=== PATIENT | female | born 1955 | race Caucasian/White ===

== ENCOUNTER 2019-06-22 14:17 | Emergency (ER) | payer BC, OTHER ==
[2019-06-22 15:21] LABS: Absolute Lymphocytes (CBC) 1.6 K/uL (0.7-4.9); Basophils % 0.3 % (0-1.3); Hematocrit 34.2 % (36.0-45.0); Lymphocytes % 24.9 % (15.3-44.8); MPV 8.8 fL (7.6-11.3); RBC Red Blood Cell Count 3.66 M/uL (3.86-4.86)
[2019-06-22 15:22] LABS: Protime INR 1.05
[2019-06-22 15:40] LABS: ALT/SGPT 25 U/L (12-78); AST/SGOT 22 U/L (15-37); Albumin 3.6 g/dL (3.4-5.0); Alkaline Phosphatase 102 U/L (45-117); BUN Blood Urea Nitrogen 23 mg/dL (7-18); Bicarbonate 28 mmol/L (21-32); Bilirubin Direct < 0.1 mg/dL (0-0.2); Bilirubin Total 0.2 mg/dL (0.2-1.0); Glucose Level 83 mg/dL (74-106); Magnesium 2.2 mg/dL (1.8-2.4); NT PRO-BNP 87 pg/mL (<125); Potassium 4.2 mmol/L (3.5-5.1); Protein, Total 6.6 g/dL (6.4-8.2); Sodium Level 142 mmol/L (136-145); Troponin (Emerg Dept Use Only) < 0.02 ng/mL (0.0-0.045)
--- NOTE | 2019-06-22 16:47 | RAD REPORT ---
EXAM DESCRIPTION: Oleg Single View06/22/2019 3:10 pm CLINICAL HISTORY: Chest pain COMPARISON: none FINDINGS: The lungs are hyperaerated The lungs appear clear of acute infiltrate. The heart is normal size IMPRESSION: No acute abnormalities displayed
--- NOTE | 2019-06-22 17:02 | RAD REPORT ---
EXAM DESCRIPTION: CT - Chest Abdomen W Con - 06/22/2019 4:22 pm CLINICAL HISTORY: Chest and abdominal pain COMPARISON: None. TECHNIQUE: Computed axial tomography the chest and abdomen obtained. 100 cc Isovue-300 administered intravenously. Oral contrast not given which limits evaluation bowel. All CT scans are performed using dose optimization technique as appropriate and may include automated exposure control or mA/KV adjustment according to patient size. FINDINGS: Lungs are clear No mediastinal or hilar lymphadenopathy is seen A pleural effusion is not seen. A pericardial effusion is not present. Cholecystectomy. The liver, spleen, pancreas, adrenals and kidneys appear unremarkable Visualized large and small bowel normal caliber. Large amount of stool is visualized within: Postsurg ical changes involve the bowel IMPRESSION: Large amount stool visualized within the colon Otherwise, no acute abnormality displayed
--- NOTE | 2019-06-22 17:32 | ER ---
Nurse's Notes [facility] Name: Nelly Davila Age: 63 yrs Sex: Female : 1955 Arrival Date: 06/22/2019 Time: 14:20 Bed 27 Private MD: Diagnosis: Other chest pain-right lower chest wall Presentation: 06/22 14:24 Presenting complaint: Presenting complaint: Patient states: RUQ pain radiating to right aa5 side of back that began 3 weeks ago. Pt denies N/V. 14:25 Transition of care: patient was not received from another setting of care. Onset of aa5 symptoms was June 2019. Risk Assessment: Do you want to hurt yourself or someone else? Patient reports no desire to harm self or others. Initial Sepsis Screen: Does the patient meet any 2 criteria? No. Patient's initial sepsis screen is negative. Does the patient have a suspected source of infection? No. Patient's initial sepsis screen is negative. Care prior to arrival: None. 14:25 Method Of Arrival: Ambulatory aa5 14:25 Acuity: RAMON 3 aa5 Historical: - Allergies: 14:28 Codeine; aa5 14:28 tramadol (Upset stomach); aa5 - Home Meds: 14:28 None [Active]; aa5 - PMHx: 14:28 Colon cancer; aa5 - PSHx: 14:28 Tonsillectomy; Tumor removed from breast; Colon resection; Cholecystectomy; aa5 14:28 Hysterectomy; aa5 14:28 Bladder repair; aa5 - Immunization history:: Flu vaccine is not up to date. - Social history:: Smoking status: Patient/guardian denies using tobacco. - Ebola Screening: : No symptoms or risks identified at this time. Screenin:43 Abuse screen: Denies threats or abuse. Denies injuries from another. Nutritional rv screening: No deficits noted. Tuberculosis screening: No symptoms or risk factors identified. Fall Risk None identified. Assessment: 14:41 General: Appears in no apparent distress. Behavior is calm, cooperative. Pain: rv Complains of pain in right lower rib cage Pain radiates to back Pain began three weeks ago. Neuro: Level of Consciousness is awake, alert, obeys commands, Oriented to person, place, time, situation. Cardiovascular: Patient's skin is warm and dry. Respiratory: Airway is patent. GI: Patient currently denies abdominal pain, constipation, diarrhea. Vital Signs: 14:28 BP 133 / 95; Pulse 72; Resp 16 S; Temp 98.0(TE); Pulse Ox 100% on R/A; Weight 41.73 kg aa5 (R); Height 5 ft. 0 in. (152.40 cm) (R); Pain 6/10; 17:52 BP 123 / 99; Pulse 76; Resp 15; Pulse Ox 100% ; rv 14:28 Body Mass Index 17.97 (41.73 kg, 152.40 cm) aa5 ED Course: 14:20 Patient arrived in ED. as 14:24 Arm band placed on. aa5 14:26 Triage completed. aa5 14:30 Waqar Richards, DAVIDE is Primary Nurse. rv 14:31 Jared Strange PA is PHCP. cp 14:31 Jared Mane MD is Attending Physician. cp 14:43 Patient has correct armband on for positive identification. Pulse ox on. NIBP on. rv 14:43 Patient maintains SpO2 saturation greater than 95% on room air. rv 15:07 XRAY Chest (1 view) In Process Unspecified. EDMS 15:41 Inserted saline lock: 22 gauge in left antecubital area, using aseptic technique. Blood rv collected. 16:22 CT Chest Abdomen W/ Contrast In Process Unspecified. EDMS 17:52 No provider procedures requiring assistance completed. IV discontinued, intact, rv bleeding controlled, No redness/swelling at site. Pressure dressing applied. Administered Medications: 17:37 Drug: TORadol 30 mg Route: IVP; Site: left antecubital; rv 17:51 Follow up: Response: Medication administered at discharge. rv Outcome: 17:31 Discharge ordered by MD. cp 17:52 Discharged to home ambulatory, with family. rv 17:52 Condition: good 17:52 Discharge instructions given to patient, Instructed on discharge instructions, follow up and referral plans. medication usage, Demonstrated understanding of instructions, follow-up care, medications, Prescriptions given X 2. 17:53 Patient left the ED. rv Signatures: Dispatcher [employer] EDMS Awilda Figueroa Audri RN RN aa Jared Strange PA PA cp Waqar Richards, DAVIDE RN rv Corrections: (The following items were deleted from the chart) 14: Presenting complaint: aa5 aa5 14: Acuity: RAMON 4 aa5 aa5
--- NOTE | 2019-06-22 17:32 | EDPHYS ---
Physician Documentation [facility] Name: Nelly Davila Age: 63 yrs Sex: Female : 1955 Arrival Date: 06/22/2019 Time: 14:20 Bed 27 Private MD: ED Physician Jared Mane HPI: 06/22 15:00 This 63 yrs old Female presents to ER via Ambulatory with complaints of Back cp Pain, Abdominal Pain. 15:00 The patient or guardian reports chest pain that is located primarily in the right lower cp lateral posterior chest and right lower lateral anterior chest. 15:00 Onset: 3 week(s) ago. The pain radiates to right back. cp 15:00 Duration: The patient or guardian reports a single episode, that is still ongoing, and cp unchanged. 15:00 Associated signs and symptoms: Pertinent negatives: abdominal pain, cough, diaphoresis, cp lower extremity pain, lower extremity swelling, syncope, vomiting. Historical: - Allergies: 14:28 Codeine; aa5 14:28 tramadol (Upset stomach); aa5 - Home Meds: 14:28 None [Active]; aa5 - PMHx: 14:28 Colon cancer; aa5 - PSHx: 14:28 Tonsillectomy; Tumor removed from breast; Colon resection; Cholecystectomy; aa5 14:28 Hysterectomy; aa5 14:28 Bladder repair; aa5 - Immunization history:: Flu vaccine is not up to date. - Social history:: Smoking status: Patient/guardian denies using tobacco. - Ebola Screening: : No symptoms or risks identified at this time. ROS: 15:10 Constitutional: Negative for body aches, chills, fever, poor PO intake. cp 15:10 Eyes: Negative for injury, pain, redness, and discharge. cp 15:10 ENT: Negative for drainage from ear(s), ear pain, sore throat, difficulty swallowing, difficulty handling secretions. 15:10 Neck: Negative for pain with movement, pain at rest, stiffness. 15:10 Cardiovascular: Positive for chest pain, Negative for edema, palpitations. 15:10 Respiratory: Negative for cough, shortness of breath, wheezing. 15:10 Abdomen/GI: Negative for abdominal pain, nausea, vomiting, and diarrhea. 15:10 Back: Positive for radiated pain, Negative for injury or acute deformity, decreased range of motion. 15:10 : Negative for urinary symptoms. 15:10 Skin: Negative for rash. 15:10 Neuro: Negative for altered mental status, headache, weakness. 15:10 All other systems are negative. Exam: 15:17 Constitutional: The patient appears in no acute distress, alert, awake, cp non-diaphoretic, non-toxic, well developed, well nourished. 15:17 Head/Face: Normocephalic, atraumatic. cp 15:17 Eyes: Periorbital structures: appear normal, Conjunctiva: normal, no exudate, no injection, Sclera: no appreciated abnormality, Lids and lashes: appear normal, bilaterally. 15:17 ENT: External ear(s): are unremarkable, Nose: is normal, Mouth: Lips: moist, Oral mucosa: pink and intact, moist, Posterior pharynx: is normal, airway is patent, no erythema, no exudate. 15:17 Neck: ROM/movement: is normal, is supple, without pain, no range of motions limitations, no nuchal rigidity. 15:17 Chest/axilla: Inspection: normal, Palpation: crepitus, is not appreciated, tenderness, that is moderate, of the right lower lateral posterior chest and right lower lateral anterior chest, that partially reproduces the patient's complaints. 15:17 Cardiovascular: Rate: normal, Rhythm: regular, Heart sounds: murmur, not appreciated, Edema: is not appreciated, JVD: is not appreciated. 15:17 Respiratory: the patient does not display signs of respiratory distress, Respirations: normal, no use of accessory muscles, no retractions, no splinting, no tachypnea, labored breathing, is not present, Breath sounds: are clear throughout, no decreased breath sounds, no stridor, no wheezing. 15:17 Abdomen/GI: Inspection: abdomen appears normal, Bowel sounds: active, all quadrants, Palpation: abdomen is soft and non-tender, in all quadrants, rebound tenderness, is not appreciated, voluntary guarding, is not appreciated, involuntary guarding, is not appreciated. 15:17 Back: CVA tenderness, is absent. 15:17 Skin: cellulitis, is not appreciated, no rash present. 15:17 Neuro: Orientation: to person, place \T\ time. Mentation: is normal, Cerebellar function: is grossly normal, Motor: moves all fours, strength is normal, Sensation: is normal. 15:35 ECG was reviewed by the Attending Physician. cp Vital Signs: 14:28 BP 133 / 95; Pulse 72; Resp 16 S; Temp 98.0(TE); Pulse Ox 100% on R/A; Weight 41.73 kg aa5 (R); Height 5 ft. 0 in. (152.40 cm) (R); Pain 6/10; 17:52 BP 123 / 99; Pulse 76; Resp 15; Pulse Ox 100% ; rv 14:28 Body Mass Index 17.97 (41.73 kg, 152.40 cm) aa5 MDM: 14:39 Patient medically screened. cp 15:00 Differential diagnosis: abnormal EKG, chest wall pain, costochondritis, pericarditis, cp pneumonia, pneumothorax, pulmonary embolus, thoracic aortic disection, unstable angina. 17:30 Data reviewed: vital signs, nurses notes, lab test result(s), EKG, radiologic studies, cp CT scan, plain films. 17:30 Test interpretation: by ED physician or midlevel provider: ECG, plain radiologic cp studies, chest xray negative for infiltrates. Counseling: I had a detailed discussion with the patient and/or guardian regarding: the historical points, exam findings, and any diagnostic results supporting the discharge/admit diagnosis, lab results, radiology results, the need for outpatient follow up, a family practitioner, to return to the emergency department if symptoms worsen or persist or if there are any questions or concerns that arise at home. Special discussion: Based on the patient's history, exam, and Dx evaluation, there is no indication for emergent intervention or inpatient Tx. It is understood by the patient/guardian that if the Sx's persist or worsen they need to return immediately for re-evaluation. 06/22 14:56 Order name: Basic Metabolic Panel; Complete Time: 15:41 cp 06/22 17:06 Interpretation: Normal except: CL 110; BUN 23; GFR 85; CA 8.4. cp 06/22 14:56 Order name: CBC with Diff; Complete Time: 15:41 cp 06/22 16:06 Interpretation: Normal except: RBC 3.66; HGB 11.8; HCT 34.2. cp 06/22 14:56 Order name: LFT's; Complete Time: 15:41 cp 06/22 14:56 Order name: Magnesium; Complete Time: 15:41 cp 06/22 14:56 Order name: NT PRO-BNP; Complete Time: 15:41 cp 06/22 14:56 Order name: PT-INR; Complete Time: 16:06 cp 06/22 14:56 Order name: Troponin (emerg Dept Use Only); Complete Time: 15:41 cp 06/22 17:06 Interpretation: Reviewed. 06/22 14:56 Order name: XRAY Chest (1 view); Complete Time: 17:05 cp 06/22 17:05 Interpretation: Report review. 06/22 14:56 Order name: EKG; Complete Time: 14:57 cp 06/22 14:56 Order name: Cardiac monitoring; Complete Time: 15:12 cp 06/22 15:44 Order name: D-Dimer; Complete Time: 16:06 EDMS 06/22 16:08 Order name: CT Chest Abdomen W/ Contrast; Complete Time: 17:05 06/22 14:56 Order name: EKG - Nurse/Tech; Complete Time: 15:43 cp 06/22 14:56 Order name: IV Saline Lock; Complete Time: 15:12 cp 06/22 14:56 Order name: Labs collected and sent; Complete Time: 15:13 cp 06/22 14:56 Order name: O2 Per Protocol; Complete Time: 15:13 cp 06/22 14:56 Order name: O2 Sat Monitoring; Complete Time: 15:13 cp EC:35 Rate is 73 beats/min. Rhythm is regular. ID interval is normal. QRS interval is normal. cp QT interval is normal. T waves are Inverted in lead aVL. Interpreted by me. Reviewed by me. Administered Medications: 17:37 Drug: TORadol 30 mg Route: IVP; Site: left antecubital; rv 17:51 Follow up: Response: Medication administered at discharge. rv Disposition: 06/22/19 17:31 Discharged to Home. Impression: Other chest pain - right lower chest wall. - Condition is Stable. - Discharge Instructions: Chest Wall Pain, Aspirin and Your Heart. - Prescriptions for Diclofenac Sodium 75 mg Oral Tablet Sustained Release - take 1 tablet by ORAL route 2 times per day; 30 tablet. Cyclobenzaprine 10 mg Oral Tablet - take 1 tablet by ORAL route every 8 hours As needed no driving while taking medication; 20 tablet. - Medication Reconciliation Form, Thank You Letter, Antibiotic Education, Prescription Opioid Use form. - Follow up: Private Physician; When: 2 - 3 days; Reason: Recheck today's complaints. - Problem is new. - Symptoms have improved. Addendum: 06/25/2019 08:21 Co-signature as Attending Physician, Jared Mane MD I agree with the assessment and c bee plan of care. Signatures: Dispatcher [employer] [facility] Jared Mane MD MD cha Calderon, Audri, RN RN aa5 Jared Strange PA PA cp Waqar Richards, RN RN rv Corrections: (The following items were deleted from the chart) 06/22 16:08 15:42 D-DIMER+[id number].LAB.BRZ ordered. [facility] 17:06 17:05 Normal except: CL 110; BUN 23; GFR 85. cp cp 17:53 17:31 06/22/2019 17:31 Discharged to Home. Impression: Other chest pain - right lower rv chest wall. Condition is Stable. Forms are Medication Reconciliation Form, Thank You Letter, Antibiotic Education, Prescription Opioid Use. Follow up: Private Physician; When: 2 - 3 days; Reason: Recheck today's complaints. Problem is new. Symptoms have improved. cp
[2019-06-22] MEDS ORDERED: KETOROLAC 30 MG/ML INJ ONE (17:39)
[2019-06-22 18:26] VITALS: TEMP 98; O2SAT 100
[2019-06-22 18:27] VITALS: BP 123/99
--- NOTE | 2019-06-24 06:41 | EKG ---
Test Date: 2019-06-22 Test Time: 15:27:10 [employer]ator: MICHELLE MEASUREMENT RESULTS: Intervals: Rate: 73 WA: 182 QRSD: 92 QT: 382 QTc: 420 [place]: P: 89 WA: 182 QRS: 87 T: 81 INTERPRETIVE STATEMENTS: Normal sinus rhythm Normal ECG No previous ECG available for comparison Electronically Signed On 06-24-19 06:41:01 TRANSIT DEPARTMENT CLERK by Pasquale Vaughn
== END 2019-06-22 17:53 | disposition home or self-care (01) ==
LOC: ER 14:17
DX: R07.89 Other chest pain (principal); Z85.038 Personal history of other malignant neoplasm of large intestine; Z88.5 Allergy status to narcotic agent
CPT/HCPCS: 93005; 85025; 80048; 36415; 83735; 85610; 85379; 80076; 84484; 83880; 74160; 71260; 71045; 96374; 99284; Q9967